=== PATIENT | male | born 1960 | race Caucasian/White ===

== ENCOUNTER 2023-03-01 05:58 | Day surgery (SDC) | payer BC ==
[2023-02-27 12:35] VITALS: BMI 23.6
[2023-03-01] MEDS ORDERED: Lidocaine 1% PF 5 ML VIAL ONE (08:00)
[2023-03-01] MEDS ORDERED: PROPOFOL 40 ML ONE (08:00)
== END 2023-03-01 09:37 | disposition home or self-care (01) ==
LOC: CSHSDC 05:58
PROVIDERS: ATTEND Internal Medicine Gastroenterology
PROC: 0DJD8ZZ Inspection of Lower Intestinal Tract, Via Natural or Artificial Opening Endoscopic (ICD-10-PCS; principal; 2023-03-01)
DX: Z12.11 Encounter for screening for malignant neoplasm of colon (principal); K64.8 Other hemorrhoids; E78.5 Hyperlipidemia, unspecified; I10 Essential (primary) hypertension; E03.9 Hypothyroidism, unspecified; Z79.890 Hormone replacement therapy; Z79.899 Other long term (current) drug therapy
CPT/HCPCS: J2704